=== PATIENT | male | born 1950 | race Caucasian/White ===

== ENCOUNTER 2019-11-29 11:53 | Emergency (ER) | payer MEDICARE, MEDICAID ==
[~2019-11-29] VITALS: Ht 182.9 cm; Wt 97.1 kg
[2019-11-29 12:00] VITALS: BP 162/75
--- NOTE | 2019-11-29 12:24 | NUR ---
PT HERE WITH C/O LAC TO LEFT UPPER EXTREMITY, STATES HE FELL BACKWARDS AND HIT IT LAST NIGHT, BLOOD IS "OOZING."
[2019-11-29] MEDS ORDERED: DIPH,PERTUSS(ACELL),TET VAC/PF 0.5 ML IM-VACC ONE ×2 (12:30→12:50)
[2019-11-29] MEDS ORDERED: LIDOCAINE-MPF 1%, 5ML INFIL ONE (12:30)
[2019-11-29] MEDS ORDERED: LIDOCAINE-MPF 1%, 5ML ONE (12:50)
--- NOTE | 2019-11-29 12:54 | NUR ---
PT MEDICATED PER ORDER.
--- NOTE | 2019-11-29 13:43 | NUR ---
PA AT BEDSIDE FOR SUTURES.
--- NOTE | 2019-11-29 13:55 | NUR ---
Patient/Caregiver given discharge instructions and they have confirmed that they understand the instructions. Patient ambulatory with steady gait.
== END 2019-11-29 14:14 | disposition home or self-care (01) ==
LOC: ED 14:09
DX: S41.111A Laceration without foreign body of right upper arm, initial encounter (principal); W01.0XXA Fall on same level from slipping, tripping and stumbling without subsequent striking against object, initial encounter; Y93.89 Activity, other specified; Y92.098 Other place in other non-institutional residence as the place of occurrence of the external cause; Y99.8 Other external cause status
CPT/HCPCS: 12002; 90471; 90715; 99284

== ENCOUNTER 2019-12-06 12:58 | Emergency (ER) | payer MEDICARE, MEDICAID ==
[~2019-12-06] VITALS: Ht 182.9 cm; Wt 98.5 kg
[2019-12-06 13:02] VITALS: BP 118/52
--- NOTE | 2019-12-06 13:23 | NUR ---
pa in for suture removal. as
[2019-12-06] MEDS ORDERED: NEOSPORIN OINT. PKT 1 PACKET ONE (13:45)
== END 2019-12-06 14:05 | disposition home or self-care (01) ==
LOC: ED 13:22
DX: S41.111D Laceration without foreign body of right upper arm, subsequent encounter (principal); F17.200 Nicotine dependence, unspecified, uncomplicated; X58.XXXD Exposure to other specified factors, subsequent encounter
CPT/HCPCS: 99283

== ENCOUNTER 2019-12-16 14:18 | Emergency (ER) | payer MEDICAID, MEDICARE ==
[~2019-12-16] VITALS: Ht 182.9 cm; Wt 97.1 kg
[2019-12-16 14:47] VITALS: BP 107/59
--- NOTE | 2019-12-16 15:44 | NUR ---
[id number]
--- NOTE | 2019-12-16 15:45 | NUR ---
PT NOT IN LOBBY, SPOKE WITH REGISTRATION THEY STATED THAT PT TOLD THEM HE WAS TIRED OF WAITING AND LEFT.
== END 2019-12-16 16:16 | disposition left against medical advice (07) ==
LOC: ED 15:40
DX: R68.89 Other general symptoms and signs (principal); Z53.21 Procedure and treatment not carried out due to patient leaving prior to being seen by health care provider